=== PATIENT | male | born 1950 | race Two or more races ===

== ENCOUNTER 2018-12-19 12:04 | Emergency (ER) | payer OTHER ==
[~2018-12-19] VITALS: Ht 172.7 cm; Wt 106.6 kg
[~2018-12-19 12:04] MED LIST: LOTREL 5-20 MG1 CAP; TOPROL XL50 MG
== END 2018-12-19 20:09 | disposition home or self-care (01) ==
LOC: ER 12:04
DX: K57.92 Diverticulitis of intestine, part unspecified, without perforation or abscess without bleeding (principal)

== ENCOUNTER → 2021-06-20 11:23 | Outpatient (CLI) | payer OTHER | END | disposition home or self-care (01) | LOC: LAB 11:23 | PROVIDERS: ATTEND Radiology Diagnostic Radiology | DX: R10.32 Left lower quadrant pain (principal) ==

== ENCOUNTER 2021-06-22 07:42 | Outpatient (CLI) | payer OTHER | END 2021-06-22 07:46 | disposition home or self-care (01) | LOC: TOM 07:42 | DX: K80.80 Other cholelithiasis without obstruction (principal); K76.0 Fatty (change of) liver, not elsewhere classified; R10.32 Left lower quadrant pain; K57.32 Diverticulitis of large intestine without perforation or abscess without bleeding; K57.90 Diverticulosis of intestine, part unspecified, without perforation or abscess without bleeding | CPT/HCPCS: 74177; Q9965 ==

== ENCOUNTER 2022-03-15 12:44 | Emergency (ER) | payer OTHER ==
[~2022-03-15] VITALS: Ht 172.7 cm; Wt 99.8 kg
[2022-03-15] MEDS ORDERED: OMEGA 3 1,0001 EACH (13:04)
[2022-03-15] MEDS ORDERED: HYDRODIURIL12.5 MG (13:04)
[2022-03-15] MEDS ORDERED: PEPCID AC20 MG (13:05)
[2022-03-15] MEDS ORDERED: PROTONIX40 MG (13:05)
[2022-03-15] MEDS ORDERED: ATIVAN1 M1 (13:06)
== END 2022-03-15 17:44 | disposition home or self-care (01) ==
LOC: ER 12:44
DX: K62.5 Hemorrhage of anus and rectum (principal); K57.30 Diverticulosis of large intestine without perforation or abscess without bleeding